=== PATIENT | male | born 1955 | race Asian ===

== ENCOUNTER 2024-03-26 20:07 | Emergency (ER) | payer OTHER ==
[2024-03-26 20:32] VITALS: RESP 18; BMI 22.9
[2024-03-26] MEDS ORDERED: predniSONE 20 MG TABLET (UD) ONE ×2 (20:49→20:50)
[2024-03-26] MEDS ORDERED: ALBUTEROL SO4 2.5/IPRATROPIUM 0.5 INH SOL 3 ML VIAL.NEB. NEB ONE (20:49)
[2024-03-26] MEDS: ALBUTEROL SO4 2.5/IPRATROPIUM 0.5 INH SOL 3 ML VIAL.NEB. NEB ONE (21:09)
[2024-03-26] MEDS: predniSONE 20 MG TABLET (UD) PO ONE (21:09)
[2024-03-26 21:32] LABS: BASO % 0.8 % (0-2.0); EOS % 5.2 % (0-4.5); HEMATOCRIT 45.9 % (35.4-49); HEMOGLOBIN 15.8 GM/dL (11.7-16.9); LYMPH % 19.6 % (8-40); MCH 30.5 pg (25.7-33.7); MCHC 34.5 g/dl (32.0-35.9); MEAN CELL VOLUME 88.4 fl (80-96); MEAN PLT VOLUME 6.6 fl (7.5-11.1); MONO % 10.4 % (3.8-10.2); PLATELET COUNT 346 10^3/uL (134-434); RBC 5.19 M/mm3 (4.00-5.60); RDW 13.1 % (11.9-15.9); WHITE BLOOD COUNT 7.1 K/mm3 (4.0-10.0)
[2024-03-26 21:52] LABS: POTASSIUM 4.8 mmol/L (3.5-5.1)
[2024-03-26 21:53] LABS: CALCIUM 9.3 mg/dL (8.5-10.1)
[2024-03-26 21:54] LABS: ALBUMIN 3.9 g/dl (3.4-5.0); BLOOD UREA NITROGEN 12.6 mg/dL (7-18)
[2024-03-26 21:57] LABS: CREATININE 1.1 mg/dL (0.55-1.3)
[2024-03-26 22:00] LABS: BILIRUBIN,TOTAL 0.5 mg/dL (0.2-1); TOT PROT 7.6 g/dl (6.4-8.2)
[2024-03-26 22:26] VITALS: BP 137/79; PULSE 77; TEMP 98.5
== END 2024-03-26 22:27 | disposition home or self-care (01) ==
LOC: JER 20:07
PROC: 3E0F7GC Introduction of Other Therapeutic Substance into Respiratory Tract, Via Natural or Artificial Opening (ICD-10-PCS; principal; 2024-03-26)
DX: J45.901 Unspecified asthma with (acute) exacerbation (principal); R07.89 Other chest pain; R06.02 Shortness of breath; R05.9 Cough, unspecified; Z20.822 Contact with and (suspected) exposure to COVID-19
CPT/HCPCS: 0241U-QW; 36415; 71046-TC-FY; 80053; 84484; 85025; 93005; 93010; 99285-25